=== PATIENT | male | born 1955 | race African-American/Black ===

== ENCOUNTER → 2016-09-24 | Outpatient (CLI) | payer BC ==
[~2016-09-24] VITALS: Ht 167.6 cm; Wt 92.6 kg
[~2016-09-24] MED LIST: ADIPEX-P37.5 M1 PO; ALLOPURINOL 30300 M2 PO; AZITHROMYCIN 2250 MG PO; CARVEDILOL6.25 MG PO; COREG6.25 MG PO; DEMADEX20 MG PO; DEPO-TESTO200 MG/1 M IM; GLUCOPHAGE500 MG PO; HUMALOG100 UNIT/1 SUBQ; HUMULIN 70100 UNIT/2 SUBQ; HUMULIN R100 UNIT/M SUBQ; HYDROCODONE-AP1 EAC6 PO; IMDUR 30 MG TAB30 M1 PO; INDOCIN50 MG PO; LIPITOR40 MG PO; LISINOPRIL-HCT1 EAC1 PO; LISINOPRIL20 MG PO; LISINOPRIL40 MG PO; METFORMIN HCL1000 MG PO; NOVOLIN N100 UNIT/3 SQ; PROTONIX40 M1 PO; SIMVASTATIN40 MG PO; SYMLINPEN1500 MCG/1 SUBQ; TAB A VITE1 EACH PO; TRESIBA FL200 UNIT/1 SUBQ; VICTOZA0.6 MG/0.1 SUBQ; VITAMIN D400 UNIT PO
--- NOTE | ~2016-09-24 | HPC ---
[address] [address] PAIN MANAGEMENT CONSULTATION Name: PIOTR FALLON Room #: REG [facility]#: [id number] Admission: 09/24/16 Attend Phys: Buddy Redd DO Discharge: Date of : 57 Report #: [id number] THIS REPORT FOR: //name// CC: Elvin Redd SUBJECTIVE: The patient is a pleasant 61-year-old gentleman typically treated by Dr. Terrell Almeida for symptomatic lumbar radiculopathy. He has a fusion at L5-S1. He had two level transforaminal epidural injection, right L4-L5, L5-S1 at last visit with excellent improvement of baseline pain. He was doing well until he slipped several weeks ago, coming down the stairs in his stocking feet, slipped on the floor, now has contralateral pain in the left lateral thigh. He tore his right Achilles tendon and has to wear a boot for about 8 weeks on this side. PHYSICAL EXAMINATION: Today shows pain, left L4 distribution, modestly positive straight leg raise on the left, slight decreased left hip flexion strength. ASSESSMENT: Symptomatic lumbar radiculopathy status post decompressive laminectomy, L5-S1. RECOMMENDATIONS: Left L4-L5 transforaminal epidural injections today, follow up with Dr. Almeida as needed. PROCEDURE NOTE: Left L4-L5 transforaminal epidural injection under fluoroscopy. PROCEDURE NOTE: After both written and informed consent was obtained including risk of spinal cord damage, infection, increased pain and paralysis, the patient agreed to proceed. The patient was taken to the fluoroscopy suite, placed in a prone position with appropriate abdominal bolstering. After sterile prep with ChloraPrep and sterile drape, a skin wheal with 1% Xylocaine was raised. A 22 gauge 4-1/2 inch epidural Tuohy needle was inserted. From an oblique approach into the posterior-superior aspect of the left L4-L5 neural foramen with continuous pressure on the glass syringe plunger for loss of resistance. Glass syringe was filled with 2 cc of 0.1 Xylocaine. The glass loss of resistance syringe was removed. A low volume extension tubing was connected, negative aspiration was accomplished for cerebrospinal fluid or blood. 1 mL of Omnipaque was injected which showed spread both within the epidural space and laterally along the nerve root. This was followed with 80 mg of triamcinolone plus 1 mL of 1.5% preservative-free Xylocaine. Needle was partially withdrawn, 0.5 mL of Xylocaine was injected to clear the needle and the needle was removed. The [address] [address] PAIN MANAGEMENT CONSULTATION Name: PIOTR FALLON [facility] [id number] Admission: 09/24/16 Attend Phys: Budyd Redd DO Discharge: Date of : 57 Report #: [id number] was cleansed, band-aid was applied. The patient was allowed to ambulate to the recovery room, discharged in good and stable condition. <ELECTRONICALLY SIGNED> By: Buddy Redd DO 09/24/16 1308 0905 1201 Buddy Redd DO /nt
[2016-09-24 08:11] VITALS: BP 169/100
== END ==
LOC: PAIN 07:17
DX: M54.16 Radiculopathy, lumbar region (principal); I10 Essential (primary) hypertension

== ENCOUNTER → 2016-10-12 | Outpatient (CLI) | payer BC ==
--- NOTE | ~2016-10-12 | 2DMMODE ---
[facility] [place] [address] 2 D/M-MODE ECHOCARDIOGRAM Name: PIOTR FALLON Room #: REG [facility]#: [id number] Admission: 10/12/16 Attend Phys: Ivan Tinoco Discharge: Date of : 57 Date of Service: 10/12/16 1402 Report #: [id number] THIS REPORT FOR: //name// APPROVED REPORT Study performed: 10/12/2016 13:05:46 EXAM: Comprehensive 2D, Doppler, and color-flow Echocardiogram Patient Location: Out-Patient Blood Pressure: 112/70 mmHg HR: 95 bpm Other Information Study Quality: Adequate Indications Nonischemic cardiomyopathy. Hx: HTN, HLP, DM 2D Dimensions RVDd: 39.13 mm LVEF(%): 38.29 (>50%) IVSd: 12.65 (7-11mm) LVOT Diam: 25.95 (18-24mm) LVDd: 62.67 mm PWd: 12.42 (7-11mm) Ascending Ao: 35.97 (22-36mm) LVDs: 50.80 (25-40mm) Aortic Root: 35.75 mm Grijalva's LVEF: 38.29 % Volumes Left Atrial Volume (Systole) Single Plane 4CH: 33.04 mL Single Plane 2CH: 50.61 mL LA ESV Index: 22.00 mL/m2 Aortic Valve AoV Peak Rolo.: 1.21 m/s AO Peak Gr.: 5.86 mmHg LVOT Max P.79 mmHg LVOT Max V: 0.67 m/s FELIX Vmax: 2.93 cm2 Mitral Valve E/A Ratio: 0.6 MV Decel. Time: 117.87 ms MV E Max Rolo.: 0.53 m/s [facility] [place] [address] 2 D/M-MODE ECHOCARDIOGRAM Name: PIOTR FALLON Room #: [facility].#: [id number] Admission: 10/12/16 Attend Phys: Ivan Tinoco Discharge: Date of : 57 Date of Service: 10/12/16 1402 Report #: [id number] MV A Rolo.: 0.88 m/s MV PHT: 34.18 ms Pulmonary Valve PV Peak Rolo.: 0.97 m/s PV Peak Gr.: 3.77 mmHg Pulmonary Vein P Vein S: 0.37 m/s P Vein A: 0.29 m/s P Vein D: 0.47 m/s P Vein A Dur.: 65.7 msec P Vein S/D Ratio: 0.79 Tricuspid Valve TR Peak Rolo.: 2.45 m/s RAP Estimate: 5.00 mmHg TR Peak Gr.: 23.93 mmHg RVSP: 29.00 mmHg Left Ventricle Left ventricle is moderately dilated. Mild concentric left ventricular hypertrophy. Left ventricular systolic function is moderately decreased. LVEF is 35-40%. Grade I - abnormal relaxation pattern. Right Ventricle Right ventricle is not well visualized. Atria The left atrium size is normal. The right atrium size is normal. Aortic Valve Aortic valve is mildly calcified. Trace aortic regurgitation. There is no aortic valvular stenosis. Mitral Valve The mitral valve is normal in structure. Mild mitral regurgitation. Tricuspid Valve The tricuspid valve is normal in structure. There is trace tricuspid regurgitation. The right atrial pressure is estimated at 5 mmHg. Estimated PAP is 29mmHg. Pulmonic Valve The pulmonary valve is normal in structure. Trace pulmonic regurgitation. Great Vessels [facility] [address] [place] [address] 2 D/M-MODE ECHOCARDIOGRAM Name: PIOTR FALLON Room #: REG [facility]#: [id number] Admission: 10/12/16 Attend Phys: Ivan Tinoco Discharge: Date of : 57 Date of Service: 10/12/16 1402 Report #: [id number] The aortic root is normal in size. The ascending aorta is normal in size. IVC is normal in size and collapses >50% with inspiration. Pericardium There is no pericardial effusion. <Conclusion> Left ventricular systolic function is moderately decreased. LVEF is 35-40%. Grade I diastolic dysfunction Aortic valve is mildly calcified, no aortic valvular stenosis or insufficiency. The mitral valve is normal in structure. Mild-moderate mitral regurgitation. Pulmonary artery pressure of 30mmHg There is no pericardial effusion. <ELECTRONICALLY SIGNED> By: Clyde Rhodes MD, [facility] 10/12/161401 01 01 Clyde Rhodes MD, FACC /INF
== END ==
LOC: CV 06:38
DX: I42.8 Other cardiomyopathies (principal); I10 Essential (primary) hypertension; E11.9 Type 2 diabetes mellitus without complications; E78.00 Pure hypercholesterolemia, unspecified

== ENCOUNTER → 2017-01-18 | Outpatient (CLI) | payer BC ==
--- NOTE | ~2017-01-18 | 2DMMODE ---
[facility] [address] [place] [address] 2 D/M-MODE ECHOCARDIOGRAM Name: PIOTR FALLON Room #: REG [facility]#: [id number] Admission: 01/18/17 Attend Phys: Ivan Tinoco Discharge: Date of : 57 Date of Service: 01/18/17 1222 Report #: [id number] THIS REPORT FOR: //name// APPROVED REPORT Study performed: 01/18/2017 10:00:20 EXAM: Comprehensive 2D, Doppler, and color-flow Echocardiogram Patient Location: Out-Patient Status: routine BSA: 2.02 HR: 81 bpm BP: 156/106 mmHg Other Information Study Quality: Adequate Indications Cardiomyopathy 2D Dimensions RVDd: 42.13 mm LVEF(%): 33.98 (>50%) IVSd: 13.95 (7-11mm) LVOT Diam: 25.35 (18-24mm) LVDd: 58.60 mm PWd: 13.01 (7-11mm) Ascending Ao: 33.75 (22-36mm) LVDs: 48.96 (25-40mm) Aortic Root: 31.95 mm IVC: 2.20 mm Grijalva's LVEF: 33.98 % Volumes Left Atrial Volume (Systole) Single Plane 4CH: 67.15 mL Single Plane 2CH: 68.46 mL LA ESV Index: 39.00 mL/m2 Aortic Valve AoV Peak Rolo.: 1.27 m/s AO Peak Gr.: 6.42 mmHg LVOT Max P.68 mmHg LVOT Max V: 0.65 m/s FELIX Vmax: 2.58 cm2 Mitral Valve E/A Ratio: 0.9 MV Decel. Time: 167.45 ms MV E Max Rolo.: 0.69 m/s [facility] [place] [address] 2 D/M-MODE ECHOCARDIOGRAM Name: FALLONPIOTR RAMOS Room #: REG [facility].#: [id number] Admission: 01/18/17 Attend Phys: Ivan Tinoco Discharge: Date of : 57 Date of Service: 01/18/17 1222 Report #: [id number] MV A Rolo.: 0.74 m/s MV PHT: 48.56 ms IVRT: 96.89 ms Pulmonary Valve PV Peak Rolo.: 1.00 m/s PV Peak Gr.: 4.08 mmHg Pulmonary Vein P Vein S: 0.43 m/s P Vein A: 0.34 m/s P Vein D: 0.62 m/s P Vein A Dur.: 161.5 msec P Vein S/D Ratio: 0.69 Tricuspid Valve TR Peak Rolo.: 3.22 m/s RAP Estimate: 5.00 mmHg TR Peak Gr.: 41.55 mmHg PA Pressure: 47.00 mmHg Left Ventricle Left ventricle is dilated. Hypokinesis involving base of inferior wall and inferoseptum Mild to moderate concentric left ventricular hypertrophy. Left ventricular systolic function is mildly decreased. LVEF is 45%. Grade I - abnormal relaxation pattern. Right Ventricle Right ventricle is dilated. The right ventricular systolic function is normal. Atria Left atrium is dilated. Right atrium is dilated. Aortic Valve The aortic valve is mildly sclerotic, trileaflet No aortic regurgitation. There is no aortic valvular stenosis. Mitral Valve The mitral valve is normal in structure. Mild mitral regurgitation. No evidence of mitral valve stenosis. Tricuspid Valve The tricuspid valve is normal in structure. There is trace tricuspid regurgitation. The right atrial pressure is estimated at 5 mmHg. There is moderate pulmonary hypertension with an estimated PAP of 45 mmHg. Pulmonic Valve The pulmonary valve is normal in structure. There is no pulmonic [address] [address] 2 D/M-MODE ECHOCARDIOGRAM Name: PIOTR FALLON [facility] [id number] Admission: 01/18/17 Attend Phys: Ivan Tinoco Discharge: Date of : 57 Date of Service: 01/18/17 1222 Report #: [id number] valvular regurgitation. Great Vessels The aortic root is normal in size. The ascending aorta is normal in size. IVC is normal in size and collapses >50% with inspiration. Pericardium There is no pericardial effusion. <Conclusion> Left ventricular systolic function is mildly decreased. Hypokinesis involving base of inferior wall and inferoseptum LVEF is 45%. Grade I - abnormal relaxation pattern. The aortic valve is mildly sclerotic, trileaflet. no aortic valvular stenosis or insufficiency. The mitral valve is normal in structure. Mild mitral regurgitation. Pulmonary artery pressure of 45mmHg There is no pericardial effusion. <ELECTRONICALLY SIGNED> By: Clyde Rhodes MD, FACC 01/18/17 1222 21 21 Clyde Rhodes MD, FACC /INF
== END ==
LOC: CV 09:19
DX: I50.9 Heart failure, unspecified (principal); I42.9 Cardiomyopathy, unspecified; I34.0 Nonrheumatic mitral (valve) insufficiency

== ENCOUNTER → 2017-01-31 | Outpatient (CLI) | payer BC ==
[2017-01-31 07:30] LABS: CALCIUM 9.2 mg/dL (8.5-10.1); CREATININE 1.3 mg/dL (0.7-1.3)
[2017-01-31 07:36] LABS: ALBUMIN 3.1 g/dL (3.4-5.0); POTASSIUM 4.3 mmol/L (3.5-5.1); TOTAL BILIRUBIN 0.5 mg/dL (<0.1-1.0); TOTAL PROTEIN 7.8 g/dL (6.4-8.2)
== END ==
LOC: LABMALL 06:16
PROVIDERS: Internal Medicine Cardiovascular Disease
DX: J98.11 Atelectasis (principal); M47.892 Other spondylosis, cervical region; M48.02 Spinal stenosis, cervical region; R07.2 Precordial pain

== ENCOUNTER → 2017-03-31 | Outpatient (CLI) | payer BC ==
[~2017-03-31] VITALS: Ht 167.6 cm; Wt 93.7 kg
--- NOTE | ~2017-03-31 | HPC ---
[facility] [place] [address] PAIN MANAGEMENT CONSULTATION Name: PIOTR FALLON Room #: REG [facility].#: [id number] Admission: 03/31/17 Attend Phys: Buddy Redd DO Discharge: Date of : 57 Report #: [id number] THIS REPORT FOR: //name// CC: Elvin Redd DATE OF SERVICE: 03/31/2017 HISTORY OF PRESENT ILLNESS: The patient is a 61-year-old gentleman, typically treated for lumbar radiculopathy status post lumbar decompressive laminectomy and fusion. Fusion is at L4-L5. He has had left L3 radicular pain, well controlled with transforaminal epidural injection, last injection was in September, prior he had a similar injection in July. Returns to pain clinic today noting pain has recurred, left anterior thigh, exacerbated with standing, walking, bending. Notes pain is a 9 on a VAS presently, exacerbated again with standing and walking. PHYSICAL EXAMINATION: GENERAL: Shows a 61-year-old gentleman, BMI is 33.4 kilograms per meter squared. VITAL SIGNS: Stable with modest hypertension (165/93). MUSCULOSKELETAL: Rises from chair using armrest, modestly antalgic gait. Does have decreased left hip flexion strength and lower extremity extension strength. Patellar reflex is diminished on the left. ASSESSMENT: Symptomatic lumbar radiculopathy status post decompressive laminectomy. PROCEDURE: Left L3-L4 transforaminal epidural injection under fluoroscopy. PROCEDURE NOTE: After both written and informed consent was obtained including risk of spinal cord damage, infection, increased pain and paralysis, the patient agreed to proceed. The patient was taken to the fluoroscopy suite, placed in a prone position with appropriate abdominal bolstering. After sterile prep with ChloraPrep and sterile drape, a skin wheal with 1% Xylocaine was raised. A 22 gauge 4-1/2 inch epidural Tuohy needle was inserted. From an oblique approach into the posterior-superior aspect of the left L3-L4 neural foramen with continuous pressure on the glass syringe plunger for loss of resistance. Glass syringe was filled with 2 mL of 0.1 Xylocaine. The glass loss of resistance syringe was removed. A low volume extension tubing was connected, negative aspiration was accomplished for cerebrospinal fluid or blood. 1 mL of Omnipaque was injected which showed spread both within the epidural space and laterally along the nerve root. This was followed with 80 mg of triamcinolone plus 1 mL of 1.5% preservative-free Xylocaine. Needle was partially withdrawn, 0.5 mL of Xylocaine was injected to clear the needle and the needle was removed. The [address] [address] PAIN MANAGEMENT CONSULTATION Name: PIOTR FALLON Room #: REG [facility] Jairo#: [id number] Admission: 03/31/17 Attend Phys: Buddy Redd DO Discharge: Date of : 57 Report #: [id number] was cleansed, band-aid was applied. The patient was allowed to ambulate to the recovery room, discharged in good and stable condition. <ELECTRONICALLY SIGNED> By: Buddy Redd DO 04/01/17 0731 1212 0005 Buddy Redd DO /nt
[2017-03-31 09:11] VITALS: BP 165/93
== END | disposition home or self-care (01) ==
LOC: PAIN 06:27
DX: M54.16 Radiculopathy, lumbar region (principal); Z68.33 Body mass index [BMI] 33.0-33.9, adult; Z98.890 Other specified postprocedural states

== ENCOUNTER → 2017-06-06 | Outpatient (CLI) | payer BC ==
[~2017-06-06] VITALS: Ht 167.6 cm; Wt 91.3 kg
[~2017-06-06] MED LIST changes: +VALSARTAN40 MG PO
--- NOTE | ~2017-06-06 | HPC ---
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 He was last seen 03/31/2017, did a left L3 transforaminal epidural injection with overall improvement of baseline pain. The patient notes pain has gradually begun to recur. Notes pain is a little different this time, a little bit higher going to the left flank, leg, anterior thigh. Exacerbated with standing, walking and bending. Rates his pain an 8 on a VAS. He does note concerningly that he is having some pain in the left L1-L2 distribution. Fortunately, there are no lesions compatible with shingles. PHYSICAL EXAMINATION: Shows a pleasant 61-year-old gentleman, BMI is modestly elevated at 30.5 kilograms per meter squared. Blood pressure is 148/86, pulse 96, respirations 16. Alert and oriented to person, place and time, judged to be a reasonable historian. Rises using armrest, moderately antalgic gait. Pain with left hip flexion strength, slightly diminished patellar reflex compared to the right. Skin fortunately shows no concerning vesicular lesions. He does have sort of a diffuse rash compatible simply with dry skin. Modestly antalgic gait when he starts to rise, but gait is generally tandem. ASSESSMENT: Symptomatic lumbar radiculopathy status post decompressive laminectomy in a gentleman with history of insulin-dependent diabetes. RECOMMENDATIONS: After discussion with the patient, he would like to repeat epidural injection under fluoroscopy today, left L2-L3 transforaminal epidural injection with 60 mg triamcinolone. Follow up simply as needed. PROCEDURE NOTE: Lumbar epidural injection under fluoroscopy. PROCEDURE: Transforaminal lumbar epidural injection under fluoroscopy. PROCEDURE NOTE: After both written and informed consent was obtained including risk of spinal cord damage, infection, increased pain and paralysis, the patient agreed to proceed. The patient was taken to the fluoroscopy suite, placed in a prone position with appropriate abdominal bolstering. After sterile prep with ChloraPrep and sterile drape, a skin wheal with 1% Xylocaine was raised. A 22 gauge 4-1/2 inch epidural Tuohy needle was inserted. From an oblique approach into the posterior-superior aspect of the left L2-L3 neural foramen with continuous pressure on the glass syringe plunger for loss of resistance. Glass syringe was filled with 2 mL of 0.1 Xylocaine. The glass loss of resistance [address] [address] PAIN MANAGEMENT CONSULTATION Name: PIOTR FALLON Room #: REG [facility] Jairo#: [id number] Admission: 06/06/17 Attend Phys: Buddy Redd DO Discharge: Date of : 57 Report #: [id number] syringe was removed. A low volume extension tubing was connected, negative aspiration was accomplished for cerebrospinal fluid or blood. 1 mL of Omnipaque was injected which showed spread both within the epidural space and laterally along the nerve root. This was followed with injectate of 60 mg of triamcinolone plus 1 mL of 1.5% preservative-free Xylocaine. Needle was partially withdrawn, 0.5 mL of Xylocaine was injected to clear the needle and the needle was removed. The area was cleansed, band-aid was applied. The patient was allowed to ambulate to the recovery room, discharged in good and stable condition. <ELECTRONICALLY SIGNED> By: Buddy Redd DO 06/08/17 0816 1237 1844 Buddy Redd DO /nt
[2017-06-06 11:27] VITALS: BP 148/86
== END | disposition home or self-care (01) ==
LOC: PAIN 07:02
DX: M54.16 Radiculopathy, lumbar region (principal); E11.9 Type 2 diabetes mellitus without complications; Z98.890 Other specified postprocedural states; Z79.4 Long term (current) use of insulin; Z79.899 Other long term (current) drug therapy

== ENCOUNTER → 2017-09-26 | Outpatient (CLI) | payer BC ==
[~2017-09-26] VITALS: Ht 167.6 cm; Wt 90.2 kg
--- NOTE | ~2017-09-26 | HPC ---
[facility] [email or web address] [address] PAIN MANAGEMENT CONSULTATION Name: PIOTR FALLON Room #: REG [facility].#: [id number] Admission: 09/26/17 Attend Phys: Terrell Almeida MD Discharge: Date of : 57 Report #: [id number] THIS REPORT FOR: //name// CC: Terrell Rangel MD DATE OF SERVICE: 09/26/2017 SUBJECTIVE: Followup visit for post-laminectomy and fusion, low back pain with radiculopathy on the left. The patient has had previous back surgery over 5 years ago. He has done pretty well with treatments including epidural injections intermittently at our office. I provided him with injections on a couple of occasions that he has done very well with. He has seen Dr. Redd also and last injection performed in May did not provide much relief. He made an appointment to see me today. He has had previous x-rays, which I reviewed today, which showed prominent bulging osteophytes throughout the thoracic and lumbar spine without acute process. There is a fusion of L5-S1. Pain is located right around the fusion and then radiates down the L5 distribution. PAST MEDICAL HISTORY: Significant for insulin-dependent diabetes. MEDICATIONS: Reviewed and reconciled. He does not take pain medication. We discussed possibly having some hydrocodone available as needed. 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 VITAL SIGNS: His blood pressure is 105/68, heart rate is 80. MUSCULOSKELETAL: Moves from a sitting to standing position, but has antalgic features to his gait. He has pain with flexion, extension, rotation, side to side movements. Straight leg raising causes pain that radiates into his left buttock down as far as the posterior calf and thigh. It follows an L5-S1 distribution. IMPRESSION: Low back pain with radiculopathy in the left L5-S1 following an L5-S1 fusion. RECOMMENDATION: 2-level transforaminal injection at L5-S1, L4-L5 under fluoroscopic guidance. This was a successful injection we provided for him in 2015. PROCEDURE: He was taken to fluoroscopic suite, was placed prone, skin prepped [facility] [address] [place] [address] PAIN MANAGEMENT CONSULTATION Name: PIOTR FALLON Room #: REG [facility].#: [id number] Admission: 09/26/17 Attend Phys: Terrell Almeida MD Discharge: Date of : 57 Report #: [id number] with ChloraPrep. Skin was anesthetized on the left in 2 levels. Using triplanar fluoroscopic views, I advanced a 22-gauge 4-1/2 inch needle into position in the neural foramen at L5-S1, L4-L5. After negative aspiration, I injected 0.5 mL of Omnipaque to demonstrate a good spread into the epidural space and along the nerve root. It was then followed by 3 mL at each level of 0.5% lidocaine mixed with 40 mg of triamcinolone. Needle was removed. He was taken to recovery room for observation. We did discuss the possible use of small amount of hydrocodone at the end of the day if his pain is very severe. He does not take opioids. I feel it is reasonable to provide him a small amount of medicine no more than 10 morphine milligram equivalents per day. He has no history of addiction or other concerns. We talked about side effects including constipation. I have just given him 1 prescription, will see how he does with it. May consider further management with opioids going forward if the pain can be controlled with simple measures. By: 1355 1844 Terrell Almeida MD /nt
[2017-09-26 12:43] VITALS: BP 109/68
== END | disposition home or self-care (01) ==
LOC: PAIN 07-11 07:22
DX: M54.16 Radiculopathy, lumbar region (principal); E11.9 Type 2 diabetes mellitus without complications; M96.1 Postlaminectomy syndrome, not elsewhere classified; Z98.890 Other specified postprocedural states

== ENCOUNTER → 2017-11-01 | Outpatient (CLI) | payer BC ==
--- NOTE | ~2017-11-01 | 2DMMODE ---
[facility] [address] [place] [address] 2 D/M-MODE ECHOCARDIOGRAM Name: PIOTR FALLON Room #: REG [facility]#: [id number] Admission: 11/01/17 Attend Phys: Ivan Tinoco Discharge: Date of : 57 Date of Service: 11/01/17 1017 Report #: [id number] THIS REPORT FOR: //name// APPROVED REPORT Study performed: 11/01/2017 09:05:25 EXAM: Comprehensive 2D, Doppler, and color-flow Echocardiogram Patient Location: Out-Patient Room #: Echo lab 2 Status: routine BSA: 1.96 HR: 76 bpm BP: 165/96 mmHg Other Information Study Quality: Adequate Indications Cardiomyopathy Hypertension/HDD 2D Dimensions RVDd: 41.04 mm LVEF(%): 35.10 (>50%) IVSd: 20.71 (7-11mm) LVOT Diam: 30.20 (18-24mm) LVDd: 34.41 mm PWd: 18.08 (7-11mm) Ascending Ao: 30.25 (22-36mm) LVDs: 28.81 (25-40mm) Aortic Root: 32.47 mm IVC: 15.00 mm Grijalva's LVEF: 35.10 % Volumes Left Atrial Volume (Systole) Single Plane 4CH: 76.44 mL Single Plane 2CH: 41.66 mL LA ESV Index: 32.00 mL/m2 Aortic Valve AoV Peak Rolo.: 1.02 m/s AO Peak Gr.: 4.14 mmHg LVOT Max P.32 mmHg LVOT Max V: 0.58 m/s FELIX Vmax: 4.05 cm2 Mitral Valve E/A Ratio: 0.[address] [place] [place] [address] 2 D/M-MODE ECHOCARDIOGRAM Name: FALLON,PIOTR BEASLEY Room #: REG [facility]#: [id number] Admission: 11/01/17 Attend Phys: Ivan Tinoco Discharge: Date of : 57 Date of Service: 11/01/17 1017 Report #: [id number] MV Decel. Time: 123.91 ms MV E Max Rolo.: 0.66 m/s MV A Rolo.: 0.86 m/s MV PHT: 35.93 ms IVRT: 101.50 ms Pulmonary Valve PV Peak Rolo.: 0.93 m/s PV Peak Gr.: 3.45 mmHg Pulmonary Vein P Vein S: 0.38 m/s P Vein A: 0.34 m/s P Vein D: 0.43 m/s P Vein A Dur.: 193.8 msec P Vein S/D Ratio: 0.88 Tricuspid Valve TR Peak Rolo.: 2.58 m/s TR Peak Gr.: 26.60 mmHg PA Pressure: 32.00 mmHg Left Ventricle The left ventricle is upper limit of normal size. Moderate concentric left ventricular hypertrophy. Left ventricular systolic function is mildly decreased. LVEF is 45-50%. Grade I - abnormal relaxation pattern. Right Ventricle The right ventricle is normal size. The right ventricular systolic function is normal. Atria Left atrium is at the upper limits of normal. Right atrium is at the upper limits of normal. Aortic Valve The aortic valve is mildly sclerotic Trace aortic regurgitation. There is no aortic valvular stenosis. Mitral Valve The mitral valve is normal in structure. Moderate mitral regurgitation. No evidence of mitral valve stenosis. Tricuspid Valve The tricuspid valve is normal in structure. There is trace tricuspid regurgitation. Estimated PAP 32 mmHg. There is mild pulmonary hypertension. [address] [address] 2 D/M-MODE ECHOCARDIOGRAM Name: PIOTR FALLON [facility]: [facility] [id number] Admission: 11/01/17 Attend Phys: Ivan Tinoco Discharge: Date of : 57 Date of Service: 11/01/17 1017 Report #: [id number] Pulmonic Valve The pulmonary valve is normal in structure. Trace to mild pulmonic regurgitation. Great Vessels The aortic root is normal in size. IVC is normal in size and collapses >50% with inspiration. Pericardium There is no pericardial effusion. <Conclusion> Left ventricular systolic function is mildly decreased. LVEF is 45-50%. Mild diastolic dysfunction The aortic valve is mildly sclerotic. Trace aortic regurgitation, no stenosis. The mitral valve is normal in structure. Moderate mitral regurgitation. There is trace tricuspid regurgitation. Estimated pulmonary artery pressure of 32 mmHg. There is no pericardial effusion. <ELECTRONICALLY SIGNED> By: Clyde Rhodes MD, FACC 11/01/17 1017 1017 1017 Clyde Rhodes MD, FACC /INF
== END ==
LOC: CV 10-25 12:29
DX: I08.1 Rheumatic disorders of both mitral and tricuspid valves (principal); I27.20 Pulmonary hypertension, unspecified; I35.8 Other nonrheumatic aortic valve disorders; I42.8 Other cardiomyopathies

== ENCOUNTER → 2018-08-31 | Outpatient (CLI) | payer BC ==
[~2018-08-31] VITALS: Ht 167.6 cm; Wt 89.8 kg
[~2018-08-31] MED LIST changes: +TRULICITY1.5 MG/0.5 SUBQ
--- NOTE | ~2018-08-31 | HPC ---
[facility] [address] [place] [address] PAIN MANAGEMENT CONSULTATION Name: PIOTR FALLON Room #: REG [facility] M..#: [id number] Admission: 08/31/18 ������������������ Attend Phys: Terrell Almeida MD Discharge: ������������������ Date of : 57 Report #: [id number] THIS REPORT FOR: //name// CC: Terrell Rangel MD DATE OF SERVICE: 08/31/2018 SUBJECTIVE: The patient returns to pain clinic today for an epidural injection. He has previously responded nicely to transforaminal injection performed on the left. He has had an extensive hardware placed fusing L5 and S1. His pain tends to emanate from the L4-L5 nerve roots. He describes a pain that radiates from his back through his hips and legs. Pain is more anterolateral and can go as far as his foot. 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 PAST MEDICAL HISTORY: Insulin-dependent diabetes. He is instructed that after his injections, his blood sugar may elevate. Denies use of tobacco. He has no history of hypertension. In summary, he exercises some, but he has not been walking much during the cold winter months. He is on no blood thinners. PHYSICAL EXAMINATION: VITAL SIGNS: He is 5 feet 6 inches, 198 pounds, BMI is 32.0, blood pressure 137/90, heart rate 85, respirations 16, O2 sat 100%. MUSCULOSKELETAL: He can independently move from sitting to standing position, walks with mild antalgic features. He has tenderness across his low back and along the scar. He has limited range of motion in flexion and extension. Straight leg raising is positive on the right involving the L4-L5 distribution. RADIOLOGY: X-rays reviewed showing surgical fusion at L5-S1 with bridging osteophytes throughout the thoracic and lumbar spine. IMPRESSION: Post-laminectomy with fusion at L5-S1 with post-surgical radiculopathy at 2 levels. PLAN: We will repeat the transforaminal epidural injections as previously performed by my partner, Dr. Redd. PROCEDURE: Transforaminal epidural injection under fluoroscopic guidance. DESCRIPTION OF PROCEDURE: He was taken to fluoroscopic suite, placed prone, [place] [address] PAIN MANAGEMENT CONSULTATION Name: PIOTR FALLON Room #: REG [facility] Stephen.#: [id number] Admission: 08/31/18 ������������������ Attend Phys: Terrell Almeida MD Discharge: ������������������ Date of : 57 Report #: [id number] skin was prepped with ChloraPrep. Skin was anesthetized on the over the L4-L5 neural foramen and the L5-S1 neural foramen at the level of his fusion. Using triplanar fluoroscopic views, I advanced each needle into the neural foramen. A 0.25 mL of Omnipaque was injected in the upper needle demonstrating an excellent epidurogram and spread through the neural foramen. Needle had to be repositioned on a couple of occasions at the lower level at L5-S1, but we did achieve spread within the epidural space and laterally along the nerve root. It was then followed at each level by 2 mL of 0.5% lidocaine mixed with 40 mg triamcinolone. He tolerated the procedure well and was observed for 45 minutes and discharged. His pain score was reduced to a level of 2-3 down from a 7 on admission. Followup visit planned as needed for repeat injections. ��������������������������������������������� ���������������������������������������� By: ��������������������������������������������� [id number] Terrell Almeida MD /nt
[2018-08-31 08:53] VITALS: BP 137/90
--- NOTE | 2018-08-31 09:16 | NUR ---
Pain Clinic Assessment: 1. History of Osteoarthritis: Not Applicable History of Rheumatoid Arthritis: Not Applicable 2. Height: 5 ft. 6 in. 167.6 cm. Weight: 198.0 lb. oz. 89.812 kg. Patient's BMI: 32.0 3. Vital Signs: BP: 137/90 Pulse: 85 Resp: 16 Temp: 02 Sat: 100 ECG Mon: 4. Pain Intensity: 7 5. Fall Risk: Dizziness: N Needs help standing or walking: N Fallen in the last 3 months: N Fall risk comments: 6. Patient on Blood Thinner: None 7. History of Hypertension: Y 8. Opioid Therapy greater than 6 weeks: N Opiate Contract Signed: 9. Risk Assessment Tool Provided: LOW RISK 0/3 10. Functional Assessment Tool: 11. Recreational Drug Use: Never Drug Type: Tobacco Use: Never Smoker Tobacco Type: Amount or Packs/day: How Many Years: Alcohol Use: Yes Frequency: Weekly Quant: 1-2
== END | disposition home or self-care (01) ==
LOC: PAIN 06:53
DX: M51.16 Intervertebral disc disorders with radiculopathy, lumbar region (principal); M96.1 Postlaminectomy syndrome, not elsewhere classified; E11.9 Type 2 diabetes mellitus without complications; Z98.890 Other specified postprocedural states; Z68.32 Body mass index [BMI] 32.0-32.9, adult

== ENCOUNTER → 2018-11-17 | Outpatient (CLI) | payer BC | LOC: RAD 13:15 | DX: R05 Cough (principal); R07.9 Chest pain, unspecified ==

== ENCOUNTER 2018-11-18 07:55 | Emergency (ER) | payer BC ==
[~2018-11-18] VITALS: Ht 167.6 cm; Wt 87.5 kg
[2018-11-18 08:41] LABS: ABSOLUTE NEUTROPHILS 3.8 thou/uL (1.4-8.2); BASOPHILS 1.5 % (0.0-2.0); EOSINOPHILS 3.3 % (0.0-3.0); HEMATOCRIT 32.3 % (42.0-52.0); HEMOGLOBIN 10.5 gm/dL (14.0-18.0); LYMPHOCYTES 28.5 % (24.0-44.0); MCH 26.4 pg (26.0-34.0); MCHC 32.5 g/dL (28.0-37.0); MCV 81.2 fL (80.0-100.0); MONOCYTES 10.1 % (1.0-8.0); PLATELET COUNT 218 thou/uL (150-400); POLYS 56.6 % (36.0-66.0); RBC 3.98 mil/uL (4.50-6.00); RDW 16.6 % (10.5-14.5); WBC 6.7 thou/uL (4.0-11.0)
[2018-11-18 08:57] LABS: ANION GAP 10 mmol/L (7-16); BUN 22 mg/dL (7-18); CALCIUM 8.9 mg/dL (8.5-10.1); CHLORIDE 107 mmol/L (98-107); CO2 26 mmol/L (21-32); CREATININE 2.3 mg/dL (0.7-1.3); GLUCOSE 125 mg/dL (74-106); SODIUM 143 mmol/L (136-145)
[2018-11-18 09:06] LABS: MAGNESIUM 2.1 mg/dL (1.8-2.4); TROPONIN-I <0.06 ng/mL (<0.06)
[2018-11-18 11:38] VITALS: BP 186/102
--- NOTE | 2018-11-20 08:01 | EKG ---
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: CAPRICE : 1955 Requested By: Dana Lopez Order Number: [id number] MD: Clyde Rhodes Measurements Intervals [employer] Rate: 78 P: 39 HI: 198 QRS: -59 QRSD: 141 T: 15 QT: 422 QTc: 481 Interpretive Statements Sinus rhythm RBBB and LAFB Left ventricular hypertrophy Baseline wander in lead(s) V3 Compared to ECG 06/24/2016 13:47:12 Sinus tachycardia no longer present Electronically Signed On 11-20-2018 8:00:57 CDT by Clyde Rhodes [email or web address] ��������������������������������������������� <ELECTRONICALLY SIGNED> ���������������������������������������� By: Clyde Rhodes MD, [facility] ��������������������������������������������� [phone] Clyde Rhodes MD, [facility] /EPI
== END 2018-11-18 11:30 | disposition home or self-care (01) ==
LOC: ER 07:55
PROVIDERS: Emergency Medicine
DX: R53.83 Other fatigue (principal); R42 Dizziness and giddiness; I10 Essential (primary) hypertension; E11.9 Type 2 diabetes mellitus without complications

== ENCOUNTER → 2018-11-28 | Outpatient (CLI) | payer BC ==
--- NOTE | 2018-11-28 09:11 | 2DMMODE ---
[facility] [place] [address] 2 D/M-MODE ECHOCARDIOGRAM Name: PIOTR FALLON [facility] [id number] ������������� Admission: 11/28/18 ������������� Attend Phys: Akua Arango Discharge: ��� ������������� ��� Date of : 57 Date of Service: 11/28/18 0911 �� Report #: [id number] �������� ��������������������������������������������[id number] THIS REPORT FOR: //name// APPROVED REPORT Study performed: 11/28/2018 08:07:32 EXAM: Comprehensive 2D, Doppler, and color-flow Echocardiogram Patient Location: Out-Patient Status: routine BSA: 1.94 HR: 78 bpm BP: 134/86 mmHg Rhythm: NSR Indications Cardiomyopathy Near syncope. Hx: HTN, HLP, DM. 2D Dimensions RVDd: 35.57 mm IVSd: 14.33 (7-11mm) LVOT Diam: 24.80 (18-24mm) LVDd: 58.46 mm PWd: 14.12 (7-11mm) Ascending Ao: 34.80 (22-36mm) LVDs: 45.18 (25-40mm) Aortic Root: 37.11 mm Volumes Left Atrial Volume (Systole) Single Plane 4CH: 38.82 mL Single Plane 2CH: 50.26 mL LA ESV Index: 25.00 mL/m2 Aortic Valve AoV Peak Rolo.: 1.18 m/s AO Peak Gr.: 5.61 mmHg LVOT Max P.69 mmHg LVOT Max V: 0.65 m/s FELIX Vmax: 2.65 cm2 Mitral Valve E/A Ratio: 0.6 MV Decel. Time: 295.51 ms MV E Max Rolo.: 0.51 m/s MV A Rolo.: 0.86 m/s MV PHT: 85.70 ms [facility] [place] [address] 2 D/M-MODE ECHOCARDIOGRAM Name: PIOTR FALLON Room #: [facility].#: [id number] ������������� Admission: 11/28/18 ������������� Attend Phys: Akua Arango Discharge: ��� ������������� ��� Date of : 57 Date of Service: 11/28/18 0911 �� Report #: [id number] �������� ��������������������������������������������[id number] IVRT: 103.81 ms Pulmonary Valve PV Peak Rolo.: 0.91 m/s PV Peak Gr.: 3.32 mmHg Pulmonary Vein P Vein S: 0.45 m/s P Vein A: 0.40 m/s P Vein D: 0.32 m/s P Vein A Dur.: 110.7 msec P Vein S/D Ratio: 1.41 Tricuspid Valve TR Peak Rolo.: 2.34 m/s RAP Estimate: 5.00 mmHg TR Peak Gr.: 21.85 mmHg PA Pressure: 27.00 mmHg Left Ventricle Left ventricle is at the upper limits of normal. Moderate concentric left ventricular hypertrophy. Left ventricular systolic function is mildly decreased. LVEF is 45%. Mild diastolic dysfunction Right Ventricle The right ventricle is normal size. The right ventricular systolic function is normal. Atria The left atrium size is normal. The right atrium size is normal. Aortic Valve Aortic valve is trileaflet, minimally calcified. Trace aortic regurgitation. There is no aortic valvular stenosis. Mitral Valve The mitral valve is normal in structure. Moderate mitral regurgitation. Tricuspid Valve The tricuspid valve is normal in structure. Trace tricuspid regurgitation. Estimated PAP is 25-30mmHg. Pulmonic Valve The pulmonary valve is normal in structure. Trace to mild pulmonic regurgitation. Great Vessels The aortic root is normal in size. The ascending aorta is normal in [facility] [address] [place] [address] 2 D/M-MODE ECHOCARDIOGRAM Name: PIOTR FALLON Room #: [facility].#: [id number] ������������� Admission: 11/28/18 ������������� Attend Phys: Akua Arango Discharge: ��� ������������� ��� Date of : 57 Date of Service: 11/28/18 0911 �� Report #: [id number] �������� ��������������������������������������������[id number] size. IVC is normal in size and collapses >50% with inspiration. Pericardium There is no pericardial effusion. <Conclusion> Left ventricular systolic function is mildly decreased. LVEF is 45%. Mild diastolic dysfunction Aortic valve is trileaflet, minimally calcified. Trace aortic regurgitation, no stenosis. The mitral valve is normal in structure. Moderate mitral regurgitation. Trace tricuspid regurgitation. Estimated pulmonary artery pressure of 25-30mmHg. There is no pericardial effusion. ��������������������������������������������� <ELECTRONICALLY SIGNED> ���������������������������������������� By: Clyde Rhodes MD, FACC ��������������������������������������������� 11/28/18910 0 0 Clyde Rhodes MD, FACC /INF
== END ==
LOC: CV 07:47
DX: I08.8 Other rheumatic multiple valve diseases (principal); I10 Essential (primary) hypertension; E78.5 Hyperlipidemia, unspecified; E11.9 Type 2 diabetes mellitus without complications

== ENCOUNTER → 2018-12-25 | Outpatient (CLI) | payer BC ==
[~2018-12-25] VITALS: Ht 167.6 cm; Wt 87.8 kg
[~2018-12-25] MED LIST changes: -ALLOPURINOL 30300 M2 PO; +ZYLOPRIM300 MG PO
--- NOTE | ~2018-12-25 | HPC ---
[facility] [address] [place] [address] PAIN MANAGEMENT CONSULTATION Name: PIOTR FALLON Room #: REG [facility]#: [id number] Admission: 12/25/18 ������������������ Attend Phys: Terrell Almeida MD Discharge: ������������������ Date of : 57 Report #: [id number] THIS REPORT FOR: //name// CC: Terrell Rangel DATE OF SERVICE: 12/25/2018 Followup visit for post-laminectomy fusion, failed back with radiculopathy. The patient returns to pain clinic today for treatment of lumbar radiculopathy. He has had pain on both the right and left and has responded to transforaminal epidural injections. It is interesting that his pain will at times be on the right and others on the left. He does describe it clearly has a radicular pain. Pain is in his back and when it is radiating, it radiates through the L4-L5 distribution into his lateral thigh and into his legs. Today, he complains of pain in both legs. He remains active. 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 He has insulin-dependent diabetes and I have been using a slightly lower amount of triamcinolone for the injections, which I will do once again today. He remains fairly fit and is trying to remain active. PQRS has been completed. 1. There is no specific complain of osteoarthritis. 2. BMI is 31.3 slightly above normal. He watches his diet and exercises when he can. We talked about daily walk. 3. Vital signs: Blood pressure 144/82, heart rate 78, respirations 16, O2 sat 100%. 4. Pain intensity 8/10 today in the dermatomal distributions described above. 5. He is not a fall risk. 6. No blood thinners. 7. History of hypertension. He takes Imdur, valsartan. All medications were reviewed and reconciled. 8. He is on no opioid medication. 9. Opioid risk tool was completed and the score is 0. 10. Functional assessment tool not completed. 11. Denies use of tobacco, drinks alcohol in social setting. PHYSICAL EXAMINATION: He is a pleasant 63-year-old gentleman appears fit. Vital signs: As noted above. He moves easily from sitting to standing position. His gait is mildly antalgic. His breathing is easy and there is no inspiratory or expiratory wheezing. Cardiac rhythm is regular. [facility] [address] [place] [address] PAIN MANAGEMENT CONSULTATION Name: PIOTR FALLON Room #: REG CLI [facility]#: [id number] Admission: 12/25/18 ������������������ Attend Phys: Terrell Almeida MD Discharge: ������������������ Date of : 57 Report #: [id number] demonstrates pain across the low back and tenderness across the scar. He has positive straight leg raising bilaterally. Pain is worse with forward flexion and extension. There is no focal weakness or sensory change. IMPRESSION: 1. Chronic low back pain with radiculopathy, status post L5-S1 fusion. Pain today is bilateral follows in L4-L5 radicular distribution. PROCEDURE: L4-L5 lumbar epidural injection under fluoroscopic guidance. After informed consent, he was taken to the fluoroscopic suite, placed prone, skin prepped with ChloraPrep. Skin anesthetized over the L4-L5 interspace. A 20-gauge Tuohy epidural needle was advanced into the epidural space with loss of resistance technique. There was no blood or CSF aspirated. A 1 mL of Omnipaque was injected and excellent spread of dye observed into the epidural space followed by 3 mL of 0.5% lidocaine mixed with 60 mg of triamcinolone. He tolerated the procedure well. There were no complications. He was observed in recovery room for 45 minutes and discharged. Followup visit as needed. ��������������������������������������������� ���������������������������������������� By: ��������������������������������������������� [id number] Terrell Almeida MD /nt
[2018-12-25 09:29] VITALS: BP 145/82
--- NOTE | 2018-12-25 09:53 | NUR ---
Pain Clinic Assessment: 1. History of Osteoarthritis: Not Applicable History of Rheumatoid Arthritis: Not Applicable 2. Height: 5 ft. 6 in. 167.6 cm. Weight: 193.6 lb. oz. 87.816 kg. Patient's BMI: 31.3 3. Vital Signs: BP: 145/82 Pulse: 78 Resp: 16 Temp: 02 Sat: 100 ECG Mon: 4. Pain Intensity: 8 5. Fall Risk: Dizziness: N Needs help standing or walking: N Fallen in the last 3 months: N Fall risk comments: 6. Patient on Blood Thinner: None 7. History of Hypertension: Y 8. Opioid Therapy greater than 6 weeks: N Opiate Contract Signed: 9. Risk Assessment Tool Provided: LOW RISK 0/3 10. Functional Assessment Tool: 11. Recreational Drug Use: Never Drug Type: Tobacco Use: Never Smoker Tobacco Type: Amount or Packs/day: How Many Years: Alcohol Use: Yes Frequency: Quant:
== END | disposition home or self-care (01) ==
LOC: PAIN 06:50
DX: M54.16 Radiculopathy, lumbar region (principal); G89.29 Other chronic pain; I10 Essential (primary) hypertension; E11.9 Type 2 diabetes mellitus without complications; Z79.899 Other long term (current) drug therapy; Z98.890 Other specified postprocedural states; Z79.4 Long term (current) use of insulin

== ENCOUNTER → 2019-07-30 | Outpatient (CLI) | payer BC ==
[~2019-07-30] VITALS: Ht 167.6 cm; Wt 86.2 kg
--- NOTE | ~2019-07-30 | HPC ---
[facility] [place] [address] PAIN MANAGEMENT CONSULTATION Name: PIOTR FALLON Room #: REG [facility].#: [id number] Admission: 07/30/19 Attend Phys: Terrell Almeida MD Discharge: Date of : 57 Report #: [id number] THIS REPORT FOR: cc: Elvin Rangel MD, Stanley P. MD Morgan, Richard L. MD ~ CC: Terrell Rangel MD DATE OF SERVICE: 07/30/2019 Followup visit for post-laminectomy with fusion. The patient was last seen in September 2018 at which time received an epidural injection above the level of his fusion. This was very close to the fusion and pain relief was significant for several months. Pain is now returning. He is here today hoping for repeat of the injection performed previously. He has insulin-dependent diabetes. A lower dose of triamcinolone is indicated. PQRS is negative for osteoarthritis. His BMI is stable at 30.7, slightly lower than last year. Blood pressure 165/105. He should follow with Dr. Rangel regarding his elevated pressure. Heart rate 94, respirations 16, O2 sat 100, pain intensity 8/10. He is not a fall risk nor has he fallen in the last 3 months. He is on no blood thinning medications, but does have a history of hypertension, under treatment. All medications were reviewed and reconciled. He takes no opioid medications, but completed an opioid risk tool for us with a score of 0. Functional assessment score 55/70. Denies use of alcohol other than occasional beer. He does not smoke. PHYSICAL EXAMINATION: As noted. He can independently move from sitting to standing position with mild antalgic gait. There is pain across the lumbosacral segment. Straight leg raising bilaterally reproduces some pain. Pain worse on the right than the left. IMAGING: X-rays show fusion of L5-S1 with posterior pedicle screws as well as L5-S1 anterior interbody screw. PROCEDURE: Epidural steroid injection under fluoroscopic guidance. After informed consent, he was taken to the fluoroscopic suite, placed prone, skin prepped with ChloraPrep. Skin anesthetized at the L4-L5 interspace just above his fusion. A 20-gauge Tuohy epidural needle was advanced into the epidural space with loss of resistance technique. I was able to aspirate a small amount of fluid, but not consistently. A 1 mL of Omnipaque was injected [address] [address] PAIN MANAGEMENT CONSULTATION Name: PIOTR FALLON [facility] [id number] Admission: 07/30/19 Attend Phys: Terrell Almeida MD Discharge: Date of : 57 Report #: [id number] and I did see anterior spread suggesting that there may be some either intrathecal or subarachnoid but not subdural spread. I chose to use normal saline for the injectate. 3 mL of normal saline was then combined with 60 mg of triamcinolone, a slight reduction because of his diabetes and injected through the needle. Needle was removed and was taken to recovery room in good condition. He was followed for approximately 45 minutes and was able to ambulate easily without difficulty. Follow up as needed. I did discuss there would be a slight increased risk of headache if we did have subdural injection, but the likelihood is low given age with a smaller gauge needle. He will contact us. By: [id number] Terrell Almeida MD /nt
--- NOTE | 2019-07-30 11:24 | NUR ---
Pain Clinic Assessment: 1. History of Osteoarthritis: Not Applicable History of Rheumatoid Arthritis: Not Applicable 2. Height: ft. in. cm. Weight: lb. oz. kg. Patient's BMI: 3. Vital Signs: BP: Pulse: Resp: Temp: 02 Sat: ECG Mon: 4. Pain Intensity: 8 5. Fall Risk: Dizziness: N Needs help standing or walking: N Fallen in the last 3 months: N Fall risk comments: 6. Patient on Blood Thinner: None 7. History of Hypertension: Y 8. Opioid Therapy greater than 6 weeks: N Opiate Contract Signed: 9. Risk Assessment Tool Provided: LOW RISK 0 10. Functional Assessment Tool: 55/70 11. Recreational Drug Use: Never Drug Type: Tobacco Use: Never Smoker Tobacco Type: Amount or Packs/day: How Many Years: Alcohol Use: Yes Frequency: Weekly Quant: 1 BEER
[2019-07-30 11:29] VITALS: BP 165/105
--- NOTE | 2019-07-30 11:32 | NUR ---
Pain Clinic Assessment: 1. History of Osteoarthritis: Not Applicable History of Rheumatoid Arthritis: Not Applicable 2. Height: 5 ft. 6 in. 167.6 cm. Weight: 190.0 lb. oz. 86.184 kg. Patient's BMI: 30.7 3. Vital Signs: BP: 165/105 Pulse: 94 Resp: 16 Temp: 02 Sat: 100 ECG Mon: 4. Pain Intensity: 8 5. Fall Risk: Dizziness: N Needs help standing or walking: N Fallen in the last 3 months: N Fall risk comments: 6. Patient on Blood Thinner: None 7. History of Hypertension: Y 8. Opioid Therapy greater than 6 weeks: N Opiate Contract Signed: 9. Risk Assessment Tool Provided: LOW RISK 0 10. Functional Assessment Tool: 55/70 11. Recreational Drug Use: Never Drug Type: Tobacco Use: Never Smoker Tobacco Type: Amount or Packs/day: How Many Years: Alcohol Use: Yes Frequency: Weekly Quant: 1 BEER
== END | disposition home or self-care (01) ==
LOC: PAIN 06:39
DX: M96.1 Postlaminectomy syndrome, not elsewhere classified (principal); M54.5 Low back pain; G89.29 Other chronic pain; E11.9 Type 2 diabetes mellitus without complications; Z79.4 Long term (current) use of insulin; Z79.899 Other long term (current) drug therapy; Z98.890 Other specified postprocedural states

== ENCOUNTER 2019-08-16 09:24 | Emergency (ER) | payer BC ==
[~2019-08-16] VITALS: Ht 167.6 cm; Wt 86.2 kg
[2019-08-16] MEDS ORDERED: BACTRIM DS TAB1 EACH PO (09:44)
[2019-08-16] MEDS ORDERED: COREG25 MG PO (09:45)
[2019-08-16] MEDS ORDERED: VALSARTAN160 MG PO (09:46)
[2019-08-16] MEDS ORDERED: VITAMIN D21250 MC1 PO (09:47)
[2019-08-16 09:49] LABS: ABSOLUTE NEUTROPHILS 5.4 thou/uL (1.4-8.2); EOSINOPHILS 1.7 % (0.0-3.0); HEMATOCRIT 33.8 % (42.0-52.0); HEMOGLOBIN 10.8 gm/dL (14.0-18.0); MCH 26.6 pg (26.0-34.0); MCV 83.1 fL (80.0-100.0); MONOCYTES 8.1 % (1.0-8.0); PLATELET COUNT 233 thou/uL (150-400); POLYS 61.2 % (36.0-66.0); RBC 4.06 mil/uL (4.50-6.00); RDW 17.1 % (10.5-14.5); WBC 8.7 thou/uL (4.0-11.0)
[2019-08-16 09:53] LABS: URINE BILIRUBIN NEGATIVE (Negative); URINE BLOOD TRACE (Negative); URINE CLARITY CLEAR; URINE COLOR YELLOW; URINE GLUCOSE-RANDOM* NEGATIVE (Negative); URINE KETONES NEGATIVE (Negative); URINE LEUKOCYTES-REFLEX NEGATIVE (Negative); URINE NITRITE-REFLEX NEGATIVE (Negative); URINE PROTEIN (DIPSTICK) 2+ (Negative); URINE UROBILINOGEN 0.2 E.U./dl (0.2-1.0)
[2019-08-16 10:00] LABS: ANION GAP 11 mmol/L (7-16); BUN 51 mg/dL (7-18); CALCIUM 9.2 mg/dL (8.5-10.1); CHLORIDE 105 mmol/L (98-107); CO2 23 mmol/L (21-32); CREATININE 4.8 mg/dL (0.7-1.3); GLUCOSE 113 mg/dL (74-106); POTASSIUM 5.3 mmol/L (3.5-5.1); SODIUM 139 mmol/L (136-145)
[2019-08-16 10:06] LABS: ALBUMIN 3.2 g/dL (3.4-5.0); DIRECT BILIRUBIN < 0.1 mg/dL (<0.1-0.2); SGOT 24 U/L (15-37); SGPT 19 U/L (30-65); TOTAL BILIRUBIN 0.2 mg/dL (<0.1-1.0); TOTAL PROTEIN 7.9 g/dL (6.4-8.2)
[2019-08-16 11:08] LABS: BACTERIA-REFLEX None Seen /HPF (None Seen); CASTS None Seen /LPF (None Seen); CRYSTALS None Seen /LPF (None Seen); SQUAMOUS None Seen /LPF (0-3); URINE RBC None Seen /HPF (0-2); URINE WBC-REFLEX 0-5 Rare /HPF (0-5)
[2019-08-16 12:54] VITALS: BP 145/76
--- NOTE | 2019-08-16 13:20 | EKG ---
[facility] [place] [address] ELECTROCARDIOGRAM REPORT Name: PIOTR FALLON Room #: DEP [facility]#: [id number] Admission: 08/16/19 Attend Phys: Discharge: 08/16/19 Date of : 57 Report #: [id number] THIS REPORT FOR: cc: Elvin Rangel MD, Stanley P. MD Couchonnal, Luis F. 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
== END 2019-08-16 12:55 | disposition home or self-care (01) ==
LOC: ER 09:24
PROVIDERS: Emergency Medicine
DX: N17.9 Acute kidney failure, unspecified (principal); E87.5 Hyperkalemia; I12.9 Hypertensive chronic kidney disease with stage 1 through stage 4 chronic kidney disease, or unspecified chronic kidney disease; E11.22 Type 2 diabetes mellitus with diabetic chronic kidney disease; N18.4 Chronic kidney disease, stage 4 (severe)

== ENCOUNTER → 2020-01-07 | Outpatient (CLI) | payer BC ==
[~2020-01-07] VITALS: Ht 167.6 cm; Wt 91.1 kg
[~2020-01-07] MED LIST changes: +BACTRIM DS TAB1 EACH PO; +COREG25 MG PO; +VALSARTAN160 MG PO; +VITAMIN D21250 MC1 PO
--- NOTE | ~2020-01-07 | HPC ---
[facility] [place] [address] PAIN MANAGEMENT CONSULTATION Name: PIOTR FALLON Room #: REG Lamin MEmmanuel.#: [id number] Admission: 01/07/20 Attend Phys: Terrell Almeida MD Discharge: Date of : 57 Report #: [id number] THIS REPORT FOR: cc: Elvin Rangel MD, Stanley P. MD Morgan, Richard L. MD ~ CC: Terrell Rangel DATE OF SERVICE: 01/07/2020 Followup visit for chronic low back pain, post-laminectomy syndrome with radiculopathy. The patient returns to pain clinic today for another epidural injection. Epidural injections have been performed no more frequently than every 3-6 months for relief of pain in the low back. They worked effectively keeping him off of stronger pain medication. Unfortunately, he has had declining kidney function. His kidney function as he told me today was about 20% of normal 6 months ago and his last check, he was at 17%. He does not know any other numbers. He follows with Dr. Elvin Rangel. He has been told that he may need to go on dialysis very soon and he has a family member who may step up and provide him with a kidney ____ for that. He has had some changes in his medication, is now on Invokana instead of metformin because of his renal issues. Other medications include vitamin D, valsartan and carvedilol, Trulicity, isosorbide, torsemide, pantoprazole, allopurinol, multivitamins, and Lipitor. PHYSICAL EXAMINATION: GENERAL: He is a pleasant 64-year-old. VITAL SIGNS: His blood pressure is 172/102, heart rate 89, respirations 16, and O2 sat 99. Pain intensity 9/10. BMI is 32.2. He has no complaints of osteoarthritis or tenderness of the joints. He has no difficulty walking or standing and ambulates without risk of fall, is on no blood thinners. History of hypertension is noted. Takes no opioids, but did complete an opioid risk tool, score of 0. Continues to use alcohol on occasion. Does not smoke. IMPRESSION: Chronic low back pain, status post laminectomy with fusion. PROCEDURE: Lumbar epidural steroid injection for symptomatic relief. Procedure performed at the top of his fusion at L3-L4. DESCRIPTION OF PROCEDURE: After informed consent, he was taken to the [address] [address] PAIN MANAGEMENT CONSULTATION Name: PIOTR FALLON Room #: REG [facility] Jairo#: [id number] Admission: 01/07/20 Attend Phys: Terrell Almeida MD Discharge: Date of : 57 Report #: [id number] fluoroscopic suite, placed prone, skin prepped with ChloraPrep. Skin anesthetized over the L3-L4 interspace. A 20-gauge Tuohy epidural needle was advanced first attempt in the epidural space with loss of resistance technique. There was no blood nor CSF aspirated. A 1 mL of Omnipaque injected with good spread of dye observed into the epidural space, was followed by 3 mL of 0.5% lidocaine mixed with 40 mg of triamcinolone. He tolerated the procedure well and was observed for 45 minutes and discharged. There were no complications. Followup visit planned in the pain clinic on an as needed basis for further injections as the patient feels necessary. We have not over utilized this technique to provide relief, I believe, and I think it is safe and reasonable approach rather than placing him on additional medication. By: [id number] Terrell Almeida MD /nt
[2020-01-07 13:49] VITALS: BP 172/102
--- NOTE | 2020-01-07 14:08 | NUR ---
Pain Clinic Assessment: 1. History of Osteoarthritis: Not Applicable History of Rheumatoid Arthritis: Not Applicable 2. Height: 5 ft. 6 in. 167.6 cm. Weight: 200.8 lb. oz. 91.082 kg. Patient's BMI: 32.4 3. Vital Signs: BP: 172/102 Pulse: 89 Resp: 16 Temp: 02 Sat: 99 ECG Mon: 4. Pain Intensity: 9 5. Fall Risk: Dizziness: N Needs help standing or walking: N Fallen in the last 3 months: N Fall risk comments: 6. Patient on Blood Thinner: None 7. History of Hypertension: Y 8. Opioid Therapy greater than 6 weeks: N Opiate Contract Signed: 9. Risk Assessment Tool Provided: LOW RISK 0 10. Functional Assessment Tool: 49/70 11. Recreational Drug Use: Never Drug Type: Tobacco Use: Never Smoker Tobacco Type: Amount or Packs/day: How Many Years: Alcohol Use: Yes Frequency: Quant:
== END ==
LOC: PAIN 07:11
PROVIDERS: ATTEND Anesthesiology Pain Medicine
DX: M54.5 Low back pain (principal); G89.29 Other chronic pain; M96.1 Postlaminectomy syndrome, not elsewhere classified; N18.9 Chronic kidney disease, unspecified; E87.5 Hyperkalemia; Z79.899 Other long term (current) drug therapy; Z88.8 Allergy status to other drugs, medicaments and biological substances; Z98.890 Other specified postprocedural states

== ENCOUNTER → 2020-01-18 | Outpatient (CLI) | payer BC | LOC: SJCVCIMAG 07:23 | PROVIDERS: ATTEND Internal Medicine Cardiovascular Disease | DX: I34.0 Nonrheumatic mitral (valve) insufficiency (principal); I45.2 Bifascicular block; I49.3 Ventricular premature depolarization; E11.22 Type 2 diabetes mellitus with diabetic chronic kidney disease; I13.10 Hypertensive heart and chronic kidney disease without heart failure, with stage 1 through stage 4 chronic kidney disease, or unspecified chronic kidney disease; N18.9 Chronic kidney disease, unspecified; R94.31 Abnormal electrocardiogram [ECG] [EKG]; I42.8 Other cardiomyopathies; E78.2 Mixed hyperlipidemia ==

== ENCOUNTER → 2020-02-22 | Outpatient (CLI) | payer BC ==
[~2020-02-22] MED LIST changes: +INVOKANA100 MG PO
== END ==
LOC: RAD 15:14
PROVIDERS: ATTEND Internal Medicine
DX: M54.5 Low back pain (principal)

== ENCOUNTER → 2020-03-03 | Outpatient (CLI) | payer BC ==
[~2020-03-03] VITALS: Ht 167.6 cm; Wt 89.4 kg
--- NOTE | ~2020-03-03 | HPC ---
[facility] [place] [address] PAIN MANAGEMENT CONSULTATION Name: PIOTR FALLON Room #: REG Lamin M.R.#: [id number] Admission: 03/03/20 Attend Phys: Terrell Almeida MD Discharge: Date of : 57 Report #: [id number] CC: Terrell Rangel MD DATE OF SERVICE: 03/03/2020 CHIEF COMPLAINT: Severe lumbar radiculopathy, post-laminectomy. The patient returns today complaining once again of pain in the low back radiating into both legs. He has had a prior L5-S1 fusion. It has been many years. 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 He also has diffuse idiopathic sclerosing hypertrophy or DISH. His symptoms are worsening in both his back and his legs. He has had to take time off at work. I performed an epidural injection recently using a midline approach above his fusion at L3-L4 and this was unhelpful. It was only about a week following the injection when the pain began to return and now it seems that he is complaining of pain that is worse. PQRS: Positive for osteoarthritis. He also has DISH as described. His BMI is 31.8, blood pressure 165/97, heart rate 84, respirations 18, O2 sat 100, pain intensity 8/10. He has not fallen. He is on no blood thinners. Opioid agreement is not signed in our clinic and Dr. Rangel provides him with some pain medication, hydrocodone prescribed last on 02/22/2020. Functional assessment score 63 today that is the highest it has been suggesting that he got significant impact of his pain keeping him from work. Denies use of tobacco, drinks alcohol socially on occasion. PHYSICAL EXAMINATION: VITAL SIGNS: As noted. His blood pressure remains elevated. He is instructed to make sure that he takes his medicines. I have suggested a pill box and following up with Dr. Rangel if it does not moderate. CHEST: Clear. CARDIAC: Rhythm is regular. MUSCULOSKELETAL: Spine reveals scar from prior surgery, which is tender. Straight leg bilaterally is positive, radiating pain in the L4-L5 distribution. IMPRESSION: Post-laminectomy syndrome with radiculopathy. Status post fusion, L5-S1. RECOMMENDATIONS: 1. We will repeat bilateral transforaminal epidural injections, which seemed to be more helpful for his leg pain by his history 2. I have ordered a CT myelogram diagnostic for post-fusion lumbar radiculopathy. 3. Consult Dr. Aguirre. Followup visit in the pain clinic or after he gets his studies. PROCEDURE: After informed consent, he was taken to the fluoroscopic suite, placed prone, skin prepped with ChloraPrep. Skin anesthetized over the L3-L4 neural foramina. We began first on the left and using triplanar fluoroscopic views, I advanced the needle into the neural foramen. A 1 mL of Omnipaque was injected with excellent spread of dye observed into the epidural space, it was followed by 3 mL of 0.5% lidocaine mixed with 40 mg of triamcinolone. Needle was removed. He was then moved slightly and the C-arm was moved to the right where I performed a mirror image injection using the same technique at the L3-L4 neural foramen. A bilateral injection was performed without complications. He tolerated the procedure well and was observed for a short time in recovery room. Blood pressure remained elevated in recovery room. He was told to immediately go home and take his medicine, which he did not do this morning. He will then follow up with Dr. Rangel if his blood pressure remains elevated. Hopefully, we will see some improvement in his pain and future changes may require surgical intervention depending on studies. By: [id number] Terrell Almeida MD /matt
[2020-03-03 08:59] VITALS: BP 165/97
--- NOTE | 2020-03-03 09:07 | NUR ---
Pain Clinic Assessment: 1. History of Osteoarthritis: Not Applicable History of Rheumatoid Arthritis: Not Applicable 2. Height: 5 ft. 6 in. 167.6 cm. Weight: 197.0 lb. oz. 89.359 kg. Patient's BMI: 31.8 3. Vital Signs: BP: 165/97 Pulse: 84 Resp: 18 Temp: 02 Sat: 100 ECG Mon: 4. Pain Intensity: 8 5. Fall Risk: Dizziness: N Needs help standing or walking: N Fallen in the last 3 months: N Fall risk comments: 6. Patient on Blood Thinner: None 7. History of Hypertension: Y 8. Opioid Therapy greater than 6 weeks: N Opiate Contract Signed: 9. Risk Assessment Tool Provided: LOW RISK 0 10. Functional Assessment Tool: 63/70 11. Recreational Drug Use: Never Drug Type: Tobacco Use: Never Smoker Tobacco Type: Amount or Packs/day: How Many Years: Alcohol Use: Yes Frequency: Quant:
== END | disposition home or self-care (01) ==
LOC: PAIN 06:44
PROVIDERS: ATTEND Anesthesiology Pain Medicine
DX: M54.16 Radiculopathy, lumbar region (principal); M96.1 Postlaminectomy syndrome, not elsewhere classified; M19.90 Unspecified osteoarthritis, unspecified site; N18.9 Chronic kidney disease, unspecified; Z79.899 Other long term (current) drug therapy; Z72.89 Other problems related to lifestyle

== ENCOUNTER → 2020-03-24 | Outpatient (CLI) | payer BC ==
[~2020-03-24] MED LIST changes: +GABAPENTIN100 MG PO
[2020-03-24 09:15] LABS: APTT 31.8 Seconds (24.5-32.8); INR 1.1; PROTIME 10.8 Seconds (9.3-11.4)
== END | disposition home or self-care (01) ==
LOC: RAD 06:57
PROVIDERS: ATTEND Anesthesiology Pain Medicine
DX: S32.020G Wedge compression fracture of second lumbar vertebra, subsequent encounter for fracture with delayed healing (principal); M47.895 Other spondylosis, thoracolumbar region; M48.05 Spinal stenosis, thoracolumbar region; N18.6 End stage renal disease; Z98.890 Other specified postprocedural states; Z79.899 Other long term (current) drug therapy; X58.XXXD Exposure to other specified factors, subsequent encounter

== ENCOUNTER → 2020-04-03 | Outpatient (CLI) | payer BC ==
[~2020-04-03] VITALS: Ht 167.6 cm; Wt 88.9 kg
[2020-04-03 09:20] VITALS: BP 149/92
== END | disposition home or self-care (01) ==
LOC: PAIN 06:49
PROVIDERS: ATTEND Anesthesiology Pain Medicine
DX: M54.5 Low back pain (principal); M47.26 Other spondylosis with radiculopathy, lumbar region; M96.1 Postlaminectomy syndrome, not elsewhere classified; I12.9 Hypertensive chronic kidney disease with stage 1 through stage 4 chronic kidney disease, or unspecified chronic kidney disease; N18.9 Chronic kidney disease, unspecified; Z98.890 Other specified postprocedural states; Z79.899 Other long term (current) drug therapy

== ENCOUNTER → 2020-05-26 | Outpatient (CLI) | payer BC ==
[~2020-05-26] VITALS: Ht 167.6 cm; Wt 87.6 kg
[2020-05-26 13:33] VITALS: BP 159/96
--- NOTE | 2020-05-26 13:54 | NUR ---
Pain Clinic Assessment: 1. History of Osteoarthritis: REPORTS SPINE History of Rheumatoid Arthritis: Not Applicable 2. Height: 5 ft. 6 in. 167.6 cm. Weight: 193.2 lb. oz. 87.635 kg. Patient's BMI: 31.2 3. Vital Signs: BP: 159/96 Pulse: 79 Resp: 14 Temp: 02 Sat: 100 ECG Mon: 4. Pain Intensity: 8 5. Fall Risk: Dizziness: N Needs help standing or walking: N Fallen in the last 3 months: N Fall risk comments: 6. Patient on Blood Thinner: None 7. History of Hypertension: Y 8. Opioid Therapy greater than 6 weeks: N Opiate Contract Signed: 9. Risk Assessment Tool Provided: LOW RISK 0 10. Functional Assessment Tool: / 11. Recreational Drug Use: Never Drug Type: Tobacco Use: Never Smoker Tobacco Type: Amount or Packs/day: How Many Years: Alcohol Use: Yes Frequency: Weekly Quant: 1-2/week
== END ==
LOC: PAIN 04-07 07:53
PROVIDERS: ATTEND Anesthesiology Pain Medicine
DX: M47.26 Other spondylosis with radiculopathy, lumbar region (principal); G89.4 Chronic pain syndrome; M96.1 Postlaminectomy syndrome, not elsewhere classified; Z79.899 Other long term (current) drug therapy

== ENCOUNTER → 2020-09-11 | Outpatient (CLI) | payer BC ==
[~2020-09-11] VITALS: Ht 167.6 cm; Wt 89.8 kg
[2020-09-11 12:44] VITALS: BP 118/77
--- NOTE | 2020-09-11 13:04 | NUR ---
Pain Clinic Assessment: 1. History of Osteoarthritis: REPORTS SPINE History of Rheumatoid Arthritis: Not Applicable 2. Height: 5 ft. 6 in. 167.6 cm. Weight: 198.0 lb. oz. 89.812 kg. Patient's BMI: 32.0 3. Vital Signs: BP: 118/77 Pulse: 87 Resp: 16 Temp: 02 Sat: 100 ECG Mon: 4. Pain Intensity: 8 5. Fall Risk: Dizziness: N Needs help standing or walking: N Fallen in the last 3 months: N Fall risk comments: 6. Patient on Blood Thinner: None 7. History of Hypertension: Y 8. Opioid Therapy greater than 6 weeks: N Opiate Contract Signed: 9. Risk Assessment Tool Provided: LOW RISK 0 10. Functional Assessment Tool: 54/ 11. Recreational Drug Use: Never Drug Type: Tobacco Use: Never Smoker Tobacco Type: Amount or Packs/day: How Many Years: Alcohol Use: Yes Frequency: Weekly Quant: 1
== END | disposition home or self-care (01) ==
LOC: PAIN 10:16
PROVIDERS: ATTEND Anesthesiology Pain Medicine
DX: M54.16 Radiculopathy, lumbar region (principal); M96.1 Postlaminectomy syndrome, not elsewhere classified; G89.29 Other chronic pain; I12.0 Hypertensive chronic kidney disease with stage 5 chronic kidney disease or end stage renal disease; N18.6 End stage renal disease; Z98.890 Other specified postprocedural states; Z79.899 Other long term (current) drug therapy

== ENCOUNTER → 2021-03-12 | Outpatient (CLI) | payer BC ==
[~2021-03-12] VITALS: Ht 167.6 cm; Wt 94.0 kg
[~2021-03-12] MED LIST changes: +CALCITRIOL0.25 MCG; +ONDANSETRON HCL4 M2; +VALSARTAN80 MG
[2021-03-12 08:48] VITALS: BP 153/90
[2021-03-12 09:21] LABS: HEMATOCRIT 27.2 % (42.0-52.0); HEMOGLOBIN 8.6 gm/dL (14.0-18.0); MCHC 31.5 g/dL (28.0-37.0); MCV 82.4 fL (80.0-100.0); RBC 3.3 mil/uL (4.50-6.00); RDW 18.9 % (10.5-14.5)
[2021-03-12 09:22] LABS: CALCIUM 8.2 mg/dL (8.5-10.1); CREATININE 7.3 mg/dL (0.7-1.3); POTASSIUM 4.9 mmol/L (3.5-5.1)
--- NOTE | 2021-03-12 14:36 | CATHLAB ---
[facility] [place] [address] INVASIVE PROCEDURE REPORT Name: PIOTR FALLON Room #: REG STEVO Mitchell.#: [id number] Admission: 03/12/21 Attend Phys: Leonel Olivas MD Discharge: Date of : 57 Report #: [id number] THIS REPORT FOR: cc: Elvin Rangel MD, Stanley P. MD Park, Jin S. MD ~ APPROVED REPORT Study performed: 03/12/2021 11:23:04 Patient Details The patient is a 65 year-old male Event Personnel Leonel Olivas Blade Filer, Nu Bradley RT(R)() Monitor, Lyndsay Cao RTR ScrubAmbrocio Dexter RN chip mixer Performed Art Access - R femoral artery* Left Heart Cath w/or w/o Coronaries [id number] [facility] Hemostasis w/ Mynx 78912 Initial Mod Sed Same Phys/QHP Gr5y [id number] Indication Dyspnea, CardiomyopathyPositive stress test, Pre-op clearance Risk Factors Hypercholesterolemia, Coronary Artery DiseaseHypertensionRenal Failure Previous Procedures/Diagnoses Previous Femoral Procedure Procedure Narrative The Right Groin^ was infiltrated with 1% Lidocaine subcutaneous anesthesia. A PINNACLE 5FR Sheath #[id number] sheath was inserted into the RFA 4F^. Coronary angiography was performed using coronary diagnostic catheters. The right coronary system was accessed and visualized with a JR4 catheter. The left coronary system was accessed and visualized with a JL5 catheter. The patient tolerated the procedure well and there were no complications associated with the procedure. Intraoperative Conscious Sedation Fentanyl 25 mcg Versed 0.5 mg [facility] [address] [place] [address] INVASIVE PROCEDURE REPORT Name: PIOTR FALLON Room #: REG [facility].#: [id number] Admission: 03/12/21 Attend Phys: Leonel Olivas MD Discharge: Date of : 57 Report #: [id number] Fluoro Time: 2.00 minutes Dose: DAP 5485.70 cGycm2 Contrast Type and Amount: Visipaque 42 ml Coronary Angiography The patient's coronary anatomy is co- dominant. Diagnostic Cath Left Main The left main artery is a large-caliber vessel, appears angiographically normal. LAD The LAD is a moderate-sized caliber vessel, traverses the anterior wall and wraps around the apex. There is mild disease in the proximal and mid segments, 20%. Diagonal 1 This is a small to modest sized caliber vessel, patent with no flow-limiting lesions. Diagonal 2 This is a small to modest sized caliber vessel, patent with no flow-limiting lesions. Diagonal 3 This is a small to modest sized caliber vessel, patent with no flow-limiting lesions. Circumflex The left circumflex artery is a moderate-sized caliber vessel, codominant. There is mild plaquing in the proximal segment, 20%. OM1 This is a small to modest sized caliber vessel, patent with no flow-limiting lesions. OM2 This is a moderate-sized caliber vessel, with mild disease in the proximal segment, 20%. This vessel supplies several branches as it courses through the inferolateral segment. Right Coronary The RCA has mild disease in the proximal and mid segments, 20%. R PDA This is a small to modest sized caliber vessel, patent with no flow-limiting lesions. Left Ventriculography Left Ventriculography was not performed. Ejection Fraction was 40-45% based off patient's Echocardiogram. An LVEDP was measured and there is no gradient across the outflow tract. Hemodynamics The aortic pressure is 160/88 mmHg with a mean of 60 mmHg. The left ventricular pressure is 149/16 mmHg with a mean of mmHg. The left ventricular end diastolic pressure is 27 mmHg. Conclusion 1. There is mild, nonobstructive coronary artery disease in the epicardial vessels. [facility] [address] [place] [address] INVASIVE PROCEDURE REPORT Name: PIOTR FALLON Room #: REG CL [facility]#: [id number] Admission: 03/12/21 Attend Phys: Leonel Olivas MD Discharge: Date of : 57 Report #: [id number] 2. There is mild to moderate nonischemic cardiomyopathy. 3. Recommend guideline directed medical therapy. <ELECTRONICALLY SIGNED> By: Leonel Olivas MD 03/12/21 1436 1436 1436 Leonel Olivas MD /[place]
== END | disposition home or self-care (01) ==
LOC: CATH 07:31
PROVIDERS: ATTEND Internal Medicine Cardiovascular Disease
DX: R94.39 Abnormal result of other cardiovascular function study (principal); I25.10 Atherosclerotic heart disease of native coronary artery without angina pectoris; R06.00 Dyspnea, unspecified; I12.9 Hypertensive chronic kidney disease with stage 1 through stage 4 chronic kidney disease, or unspecified chronic kidney disease; E11.22 Type 2 diabetes mellitus with diabetic chronic kidney disease; N18.9 Chronic kidney disease, unspecified; I42.9 Cardiomyopathy, unspecified; Z98.890 Other specified postprocedural states; Z79.899 Other long term (current) drug therapy